=== PATIENT | female | born 1960 | race Caucasian/White ===

== ENCOUNTER 2016-08-26 10:03 | Observation (INO) ==
[2016-08-26 10:37] LABS: Basophils # 0.1 K/mcL (0.0-0.2); Basophils % 1.6 %; Eosinophils # 0.2 K/mcL (0.0-0.6); Eosinophils % 2.8 %; Hemoglobin 15.4 g/dL (11.5-15.4); Immature Granulocytes % 0.5 % (0-4); Immature Platelets 8.7 % (1.1-6.1); Lymphocytes # 2.6 K/mcL (0.6-4.6); Lymphocytes % 41.4 %; Mean Corpuscular HGB Conc 33.5 g/dL (31.6-35.5); Mean Corpuscular Hemoglobin 29.8 pg (28.0-33.3); Mean Platelet Volume 10.9 fL (9.4-12.4); Monocytes # 0.4 K/mcL (0.0-1.3); Monocytes % 6.2 %; Platelet Count 168 K/mcL (140-400); Red Blood Count 5.17 M/mcL (3.82-4.97); Red Cell Distribution Width 12.3 % (11.5-14.5); Segmented Neutrophils % 47.5 %
[2016-08-26 10:44] LABS: INR 1.1; Prothrombin Time 11.8 Seconds (9.4-12.1)
[2016-08-26 10:47] LABS: Activated Partial Thrombo Time 30.9 Seconds (26.0-36.0)
[2016-08-26 10:50] LABS: BUN/Creatinine Ratio 13 (6-26); Blood Urea Nitrogen 10 mg/dL (7-20); Calcium 9.5 mg/dL (8.6-10.8); Carbon Dioxide 28 mEq/L (19-29); Chloride 106 mEq/L (98-109); Glucose 98 mg/dL (70-99); Osmolality,Calculated 295 (280-300); Potassium 3.6 mEq/L (3.5-4.5); Sodium 143 mEq/L (136-145); eGFR For African Americans > 60 (> 60); eGFR For Non-African Americans > 60 (> 60)
--- NOTE | 2016-08-26 12:06 | Emergency Department Note ---
Disposition Clinical Impression: Acute coronary syndrome, Unstable angina pectoris Disposition: Admitted As Inpatient Condition: Fair Chest Pain HPI - General Chief Complaint: ED Chest Pain Stated Complaint: Chest pain/dizzy/x 3 days Time Seen by Provider: 08/26/16 10:38 Source: patient Limitations: no limitations Vital Signs Reviewed: Yes Nursing Notes Reviewed: Yes - History of Present Illness HPI Narrative: She presents with chest pain and this is described as crushing and it is 15 minutes at a time and is intermittent and started one half days ago. Initially called the paramedics and drove down the hill from her house but the paramedics have not yet arrived and her she said decided that he did not want to go to the hospital and did not want her to go so they called paramedics back and canceled the call. She has had intermittent to 2 minute chest pain episodes since that time. Nonexertional. He does not specifically have dyspnea but said she feels it is difficult to breathe. No diaphoresis. No radiation, neck, arm, jaw or back. No pain or swelling of the lower extremities. Social history: Smoker. Family history: Positive for heart disease Severity scale (1-10): 6 - Related Data Previous Rx's Medication Instructions Recorded Cyclobenzaprine [Flexeril] 5 mg PO HS #3 tablet 01/31/15 TraMADol [Ultram] 50 mg PO Q4HR #10 tablet 01/31/15 LORazepam [Ativan] 0.5 mg PO TID PRN #8 tablet 03/01/15 Albuterol Sulfate [Albuterol 1 puff IH Q4HR PRN #1 inhaler 10/11/15 Inhaler] Fluticasone Propionate Nasal 50 mcg NS DAILY #1 bottle 11/04/15 [Flonase] Acetaminophen w/Cod 300-30 mg 1 each PO Q6HR #12 tablet 01/04/16 [Tylenol w/Codeine #3] Cyclobenzaprine [Flexeril] 10 mg PO TID #30 tablet 01/04/16 Meclizine [Antivert] 25 mg PO TID #30 tablet 02/25/16 Acetaminophen w/Cod 300-30 mg 1 - 2 each PO BID PRN #4 tablet 08/15/16 [Tylenol w/Codeine #3] Promethazine [Phenergan] 25 mg PO Q8HR #10 tablet 08/15/16 Allergies Allergy/AdvReac Type Severity Reaction Status Date / Time Penicillins [PCN] Allergy Rash Verified 02/24/16 20:49 Review of Systems: Constitutional: No fever Vision: No blurred vision ENT: No rhinorrhea Respiratory: No cough Allergic: No allergies : No blood in urine GI: No blood in stool Hematologic: + bruising Dermatologic: No skin rash Musculoskeletal: No pain in the extremities Neuro: No numbness of the extremities Chest Pain PMH - Past Medical History Medical history: Reports: migraine, other Psychiatric history: Reports: anxiety 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: no 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 SUPERVISOR history - Social History Smoking Status: Current every day smoker Alcohol use: Reports: none Drug use: Reports: none Physical Exam CONSTITUTIONAL: Well-appearing; well-nourished; A&O X 3, in no apparent distress HEAD: Normocephalic; atraumatic EYES: PERRL, no scleral icterus NOSE: The nose is normal in appearance without rhinorrhea NECK: No JVD or distended neck veins RESP: Normal chest excursion with respiration; breath sounds clear and equal bilaterally; no wheezes, rhonchi, or rales CARD: Regular rhythm, without murmurs, rub or gallop ABD: Non-distended; non-tender, soft, without rigidity, rebound or guarding,no pulsatile mass CHEST: No pain with palpation SKIN: Normal for age and race; warm and dry without diaphoresis ; no apparent lesions EXTREMITIES: Pulses are 2 plus and equal times 4 extremities, no peripheral edema or calf muscle pain - General Limitations: no limitations General appearance: alert, in no apparent distress Course Vital Signs Temperature 97.6 F 08/26/16 10:12 Pulse Rate 72 08/26/16 10:12 Respiratory Rate 17 08/26/16 10:12 Blood Pressure 115/81 08/26/16 10:12 O2 Sat by Pulse Oximetry 98 08/26/16 10:12 Temperature 97.6 F 08/26/16 10:12 Pulse Rate 53 08/26/16 11:56 Respiratory Rate 14 08/26/16 11:56 Blood Pressure 122/80 08/26/16 11:56 O2 Sat by Pulse Oximetry 100 08/26/16 11:56 Oxygen Delivery Oxygen Delivery Room Air Chest Pain - MDM Narrative Medical decision making narrative: I discussed the patient spoke with her and did review her EKG and it shows normal sinus rhythm with a rate of 60 and there is some nonspecific ST changes her initial labs are negative. The patient will be admitted for further cardiac evaluation. I did speak with Dr. Rodas who is the hospitalist and he does accept the patient for admission. Aspirin 325mg PO. SHe is here w her daughter [id number] - Medical Records Medical records reviewed: Yes I reviewed the patient's medical records. - Lab Data Lab results reviewed: Yes I reviewed the patient's lab results. Result diagrams: 08/26/16 10:29 08/26/16 10:29 Lab Results 08/26/16 08/26/16 08/26/16 Range/Units 10:29 10:29 10:29 WBC 6.3 (4.3-11.1) K/mcL RBC 5.17 H (3.82-4.97) M/mcL Hgb 15.4 (11.5-15.4) g/dL Hct 46.0 H (35.3-44.9) % MCV 89.0 (83.0-100.0) fL MCH 29.8 (28.0-33.3) pg MCHC 33.5 (31.6-35.5) g/dL RDW 12.3 (11.5-14.5) % Plt Count 168 (140-400) K/mcL MPV 10.9 (9.4-12.4) fL Immature Gran % 0.5 (0-4) % Seg Neutrophils % 47.5 % Lymphocytes % 41.4 % Monocytes % 6.2 % Eosinophils % 2.8 % Basophils % 1.6 % Neutrophils # 3.0 (1.6-8.9) K/mcL Lymphocytes # 2.6 (0.6-4.6) K/mcL Monocytes # 0.4 (0.0-1.3) K/mcL Eosinophils # 0.2 (0.0-0.6) K/mcL Basophils # 0.1 (0.0-0.2) K/mcL Immature Plt Fraction 8.7 H (1.1-6.1) % PT 11.8 (9.4-12.1) Seconds INR 1.1 APTT 30.9 (26.0-36.0) Seconds Sodium 143 (136-145) mEq/L Potassium 3.6 (3.5-4.5) mEq/L Chloride 106 (98-109) mEq/L Carbon Dioxide 28 (19-29) mEq/L BUN 10 (7-20) mg/dL Creatinine 0.79 (0.57-1.11) mg/dL Est GFR ( Amer) > 60 (> 60) Est GFR (Non-Af Amer) > 60 (> 60) BUN/Creatinine Ratio 13 (6-26) Glucose 98 (70-99) mg/dL Calculated Osmolality 295 (280-300) Calcium 9.5 (8.6-10.8) mg/dL Troponin I (0-0.03) ng/mL 08/26/16 Range/Units 10:29 WBC (4.3-11.1) K/mcL RBC (3.82-4.97) M/mcL Hgb (11.5-15.4) g/dL Hct (35.3-44.9) % MCV (83.0-100.0) fL MCH (28.0-33.3) pg MCHC (31.6-35.5) g/dL RDW (11.5-14.5) % Plt Count (140-400) K/mcL MPV (9.4-12.4) fL Immature Gran % (0-4) % Seg Neutrophils % % Lymphocytes % % Monocytes % % Eosinophils % % Basophils % % Neutrophils # (1.6-8.9) K/mcL Lymphocytes # (0.6-4.6) K/mcL Monocytes # (0.0-1.3) K/mcL Eosinophils # (0.0-0.6) K/mcL Basophils # (0.0-0.2) K/mcL Immature Plt Fraction (1.1-6.1) % PT (9.4-12.1) Seconds INR APTT (26.0-36.0) Seconds Sodium (136-145) mEq/L Potassium (3.5-4.5) mEq/L Chloride (98-109) mEq/L Carbon Dioxide (19-29) mEq/L BUN (7-20) mg/dL Creatinine (0.57-1.11) mg/dL Est GFR ( Amer) (> 60) Est GFR (Non-Af Amer) (> 60) BUN/Creatinine Ratio (6-26) Glucose (70-99) mg/dL Calculated Osmolality (280-300) Calcium (8.6-10.8) mg/dL Troponin I 0.00 (0-0.03) ng/mL - Radiology Data Radiology results reviewed: Yes I reviewed the patient's radiology results. Chest X-Ray 08/26/16 10:16 IMPRESSION: Question of minimal COPD. No acute cardiopulmonary disease. D/ / John Garcia MD / John Garcia MD Interpreting Provider: John Garcia MD - EKG Data EKG attestation: Yes I reviewed and interpreted this EKG.
[2016-08-26] MEDS ORDERED: Acetaminophen 325 MG TABLET PO PRN (13:36)
[2016-08-26] MEDS ORDERED: Naloxone 0.4 MG/ML INJ IVP PRN (13:36)
[2016-08-26] MEDS ORDERED: Ondansetron 4 MG/2 ML VIAL IVP PRN (13:36)
[2016-08-26] MEDS ORDERED: *HR* Morphine 2 MG/ML SYRINGE IVP PRN (13:36)
[2016-08-26 14:09] LABS: Magnesium 1.8 mg/dL (1.6-2.6)
[2016-08-26 14:22] LABS: Chol/HDL Ratio 5.3 (0-4.9); Cholesterol 176 mg/dL (< 200); HDL Cholesterol 33 mg/dL (40-59); LDL Cholesterol,Calculated 110 mg/dL (0-99); Triglycerides 164 mg/dL (< 150)
[2016-08-26] MEDS ORDERED: *HR* Acetaminophen w/Cod 300-30 mg 1 TAB TABLET PO ONE (14:32)
[2016-08-26 14:42] LABS: Thyroid Stimulating Hormone 1.439 mcIU/mL (0.350-4.840)
[2016-08-26 14:48] LABS: Hemoglobin A1C 4.9 %
--- NOTE | 2016-08-26 15:21 | Internal Med History&Physical ---
Date of Encounter: 08/26/16 Time of Encounter: 14:40 Assessment and Plan (1) Chest pain Current visit: Yes Status: Acute Acute chest pain - rule out ACS Continue aspirin and statin EKG - normal sinus rhythm and no acute ST-T changes Troponin - negative, will trend Chest x-ray - no acute process Cardiac telemetry Echocardiogram pending, nuclear stress test pending Qualifiers: Chest pain type: unspecified Qualified Code(s): R07.9 - Chest pain, unspecified (2) Anxiety Current visit: Yes Status: Chronic Continue clonazepam when necessary (3) Migraine headache Current visit: Yes Status: Chronic Acute on chronic Continue Tylenol when necessary Follows up at [facility] as outpatient Qualifiers: Migraine type: without aura Status migrainosus presence: without status migrainosus Intractability: not intractable Qualified Code(s): G43.009 - Migraine without aura, not intractable, without status migrainosus (4) Tobacco abuse Current visit: Yes Status: Chronic Nicotine patch, counseled about cessation (5) DVT prophylaxis Current visit: Yes Status: Acute Continue heparin subcutaneous Internal Medicine - H&P: HPI Chief complaint: chest pain Admitted From: Emergency Dept History of present illness: Ms. Aguilar is a 56 year old female past medical history of migraine headache and anxiety. She presents to the ED with complaints of chest pain.she states pain initially started about 2 days ago. she describes the pain as a crushing substernal pain, sometimes radiating to the back. She states pain is intermittent. Rates it 7 out of 10. Does not radiate to the left arm or neck. no aggravating or alleviating factors. no other associated symptoms. patient denies shortness of breath, denies palpitations. denies abdominal pain or vomiting or diarrhea. she does complain of migraine headache. On examination patient is awake and alert. not in any distress. Able to provide history. She is being admitted for chest pain to rule out ACS. We will repeat EKG in a.m., and troponin and continue aspirin and statin. Patient has been explained about her condition and plan of care. Understood and agreed. No unanswered questions. CODE STATUS full code. Past Med Surg Social Fam HX - Past Medical History Medical history: migraine, other Psychiatric history: anxiety - Past Surgical History Surgical History: breast surgery, - Social History Smoking Status: Current every day smoker Packs per day: 1 Smokeless Tobacco Status: No Alcohol use: none Drug use: none - Family History Mother Living Status: Age at : 76 Cause of : SBO Hx Family Cardiac Disorders: Yes Father Living Status: Age at : 82 Cause of : Heart Disease Hx Family Cardiac Disorders: Yes Internal Medicine - H&P: Meds Acetaminophen [Tylenol] 1,000 mg PO Q6HR PRN 08/26/16 [History] clonazePAM [Klonopin] 0.5 mg PO BID PRN 08/26/16 [History] Allergies Penicillins [PCN] Allergy (Verified 02/24/16 20:49) Rash All Systems PM: A 10-system review of systems was performed and is negative for pertinent findings except as documented above in the HPI. - Constitutional Constitutional: fatigue, weakness, no fever(s) - EENT Eyes: no blurry vision - Cardiovascular Cardiovascular ROS IM: chest pain, dyspnea (mild), no diaphoresis, no lightheadedness, no orthopnea, no syncope - Respiratory Respiratory: no cough, no hemoptysis, no dyspnea on exertion, no wheezing, no chest congestion - Gastrointestinal Gastrointestinal: no abdominal pain, no bloating, no diarrhea, no nausea, no vomiting - Genitourinary Genitourinary: no dysuria - Musculoskeletal Musculoskeletal ROS IM: back pain - Neurological Neurological ROS: no abnormal gait, no abnormal speech, no dizziness, no numbness, no tingling - Constitutional Vitals: Temp Pulse Resp BP Pulse Ox 97.7 F 49 16 118/70 100 08/26/16 13:46 08/26/16 13:46 08/26/16 13:46 08/26/16 13:46 08/26/16 13:46 General appearance: Present: cachectic, A&O X 3, no acute distress, answers questions appropriately - Head Head exam: Present: atraumatic - Eye Eye exam: Present: EOMI - ENT ENT exam: Present: mucous membranes dry - Respiratory Respiratory exam: Present: CTAB. Absent: rhonchi, wheezes, tachypnea - Cardiovascular Cardiovascular exam: Present: RRR, +S1, +S2 - GI/Abdominal GI/Abdominal exam: Present: soft, no peritoneal signs. Absent: distended, firm , guarding, rebound, tenderness - Extremities Exam Extremities exam: Present: radial pulses palpable and symetrical. Absent: cyanotic, pedal edema, tenderness - Neurological Exam Neurological exam: Present: alert, oriented X3, no focal deficits Internal Med - H&P Results - Labs CBC & Chem 7: 08/26/16 10:29 08/26/16 10:29
[2016-08-26] MEDS: Nicotine 21 MG PATCH.TD24 TD SCH (15:23)
[2016-08-26] MEDS: Aspirin 81 MG TAB.CHEW PO SCH (15:23)
--- NOTE | 2016-08-26 15:55 | Electrocardiograph Report ---
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
[2016-08-26] MEDS: *HR* Heparin 5,000 UNIT/ML VIAL SQ SCH (17:54)
[2016-08-26] MEDS: Famotidine 20 MG TABLET PO SCH (19:54)
[2016-08-26] MEDS: clonazePAM 0.5 MG TABLET PO PRN (22:02)
[2016-08-26 22:03] LABS: Bilirubin,Urine Negative (Negative); Blood,Urine Negative (Negative); Clarity,Urine Clear (Clear); Color,Urine Yellow (Yellow); Glucose,Urine (UA) Normal (Normal); Ketones,Urine Negative (Negative); Leukocyte Esterase,Urine Negative (Negative); Nitrite,Urine Negative (Negative); Protein,Urine Negative (Neg-Trace); Specific Gravity,Urine 1.009 (1.010-1.025); Urobilinogen,Urine Normal (Normal)
[2016-08-27 03:53] LABS: BUN/Creatinine Ratio 18 (6-26); Blood Urea Nitrogen 13 mg/dL (7-20); Carbon Dioxide 21 mEq/L (19-29); Chloride 109 mEq/L (98-109); Glucose 84 mg/dL (70-99); Osmolality,Calculated 291 (280-300); Potassium 3.8 mEq/L (3.5-4.5); Sodium 141 mEq/L (136-145); eGFR For African Americans > 60 (> 60); eGFR For Non-African Americans > 60 (> 60)
[2016-08-27] MEDS ORDERED: Regadenoson 0.4 MG/5 ML SYRINGE IVP ONE (05:59)
[2016-08-27] MEDS: *HR* Heparin 5,000 UNIT/ML VIAL SQ SCH ×2 (06:14→17:03)
[2016-08-27] MEDS: Aspirin 81 MG TAB.CHEW PO SCH (08:39)
[2016-08-27] MEDS: Famotidine 20 MG TABLET PO SCH ×2 (08:40→21:05)
[2016-08-27] MEDS: Nicotine 21 MG PATCH.TD24 TD SCH (08:40)
[2016-08-27] MEDS ORDERED: Ketorolac 60 MG/2 ML VIAL IM ONE (15:34)
--- NOTE | 2016-08-27 18:12 | Internal Med Progress Note ---
Date of Encounter: 08/27/16 Time of Encounter: 11:45 - Assessment and plan (1) Chest pain Current Visit: Yes Status: Acute Assessment and plan: Reports chest pain, onset 3 days ago described as crushing substernal pain with radiation through to the back. It is intermittent, 10/10. There is no radiation and no other associated symptoms. She denies shortness of breath or palpitations, nausea, vomiting, diaphoresis. Patient reports that initially pain began at 11:30 PM which awakened her from sleep. She said it lasted about 15 minutes she said the pain was so intense crushing that she could not move. With this episode she did report nausea and feeling clammy. She said that he could get squat together [place] She said she waited 30-45 minutes for the squad, it did not calm, she took 3 baby aspirin and went that. On August 25 she had the same episode again, was not as bad , rated 6/10 and lasted 5 minutes. On the day of admission she woke up from sleep at midnight with the same pain, this time last 30 minutes. Patient was to have stress test today, during stress test she became hypotensive and the test was stopped. Will complete test tomorrow. Echocardiogram was completed, showed normal systolic functio LVEF 60-65%, normal diastolic function, normal RV size and function, mild AR and no evidence of pulmonary hypertension. Chest x-ray was negative for acute process, possible COPD. Troponins were negative 3. EKG is normal sinus rhythm. TSH was within normal limits. 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 Says her is helpful with chores at home. Patient states that she has tried antidepressants in the past, however none longer than 1 week. Patient appears to be very anxious and states that she wants to go home and has multiple questions about side effects of antidepressants. We did have a lengthy discussion and she has agreed to try an SSRI for a month to test its effectiveness. I have started her on Escitalopram. Patient states that she does not want to talk to psychiatry. (3) Migraine headache Current Visit: Yes Status: Chronic Assessment and plan: Chronic. Patient sees neurology at [facility]. Migraine today, Tylenol was ineffective. Patient was given Toradol 60 mg IM. She says this has been effective for her in the past. Continue to monitor. Qualifiers: Migraine type: without aura Status migrainosus presence: without status migrainosus Intractability: not intractable Qualified Code(s): G43.009 - Migraine without aura, not intractable, without status migrainosus (4) Tobacco abuse Current Visit: Yes Status: Chronic Assessment and plan: Patient reports to me that she does not smoke. Patient has nicotine patch ordered. (5) DVT prophylaxis Current Visit: Yes Status: Acute Assessment and plan: Patient is ambulatory. Heparin subcutaneous daily. - Time Spent With Patient less than 15 minutes - Subjective Interval history: She was seen and assessed about 1145 this morning. Patient has very flat affect and appears to be somewhat depressed. She reports dizziness for 2 years which is becoming increasingly worse. She reports that this is constant that she sees neurology at [facility] for this. She says that she has bulging disc and C7 and has migraines which she also sees neurology at [facility] 4. She has been through vestibular rehabilitation twice seem to help some, but the dizziness never completely resolved. She says it happens daily at about 10 AM, regardless of where she is what she is doing. She has had syncopal episodes and has fallen due to the dizziness in the past. She reports near constant weakness and fatigue and 30 pound weight loss since April of this year. She denies any change in her diet or change in appetite. She says she has started drinking in sure, as well. She says that she is to follow up with GI at [facility] they can get an appointment until October or November. She says that she will thinks that she is not absorbing her food wants her to see a GI specialist. She has requested to see GI here, and is aware that he is out of town for the remainder of this month. She has had a CT chest and pelvis, as well as an MRI brain to investigate potential causes for weight loss. She is to see hematology here next week, Dr. Martinez. She denies alcohol, recreational drugs, or cigarette smoking. I have started her on Megace, and she is agreeable to start on an antidepressant. She says that she has taken antidepressants in the past and they make her feel funny, although she has never taken one longer than a week. We discussed the fact that most of them take at least 2 weeks to take effect and I encouraged her to take one for at least 1 month to assess its effectiveness. She was agreeable to this. She was to have a stress test done today, however during the stress test, she became hypotensive, and the test was stopped. She wanted to sign out AMA because she has horses at home that need to be cared for. She said her is not helpful, she says this to causes her stress. - Constitutional Vitals: Temp Pulse Resp BP Pulse Ox 98.6 F 58 16 100/62 97 08/27/16 16:06 08/27/16 16:06 08/27/16 16:06 08/27/16 16:06 08/27/16 16:06 General appearance: Present: cachectic, A&O X 3, pleasant, no acute distress, underweight, answers questions appropriately - Head Head exam: Present: normal inspection - Eye Eye exam: Present: normal appearance, conjuntiva pink - ENT ENT exam: Present: normal exam - Neck Neck exam general surgery: Present: normal inspection. Absent: lymphadenopathy , tenderness - Respiratory Respiratory exam: Present: decreased breath sounds, CTAB. Absent: rales, rhonchi, stridor, wheezes - Cardiovascular Cardiovascular exam: Present: RRR, +S1, +S2. Absent: diastolic murmur, systolic murmur - GI/Abdominal GI/Abdominal exam: Present: normal bowel sounds, soft. Absent: distended, hepatomegaly, tenderness - Extremities Exam Extremities exam: Present: normal capillary refill, warm, radial pulses palpable and symetrical. Absent: pedal edema, tenderness - Neurological Exam Neurological exam: Present: alert, oriented X3, no focal deficits. Absent: facial droop, speech deficit Internal Medicine: Result - Labs CBC & Chem 7: 08/26/16 10:29 08/27/16 02:22 Labs: BMP 08/27/16 02:22 Sodium 141 Potassium 3.8 Chloride 109 Carbon Dioxide 21 BUN 13 Creatinine 0.72 Glucose 84 Calcium 9.0 Cardiac Enzymes 08/26/16 08/27/16 Range/Units 22:13 02:22 Troponin I 0.00 0.00 (0-0.03) ng/mL Urine 08/26/16 Range/Units 21:55 Urine Color Yellow (Yellow) Urine Clarity Clear (Clear) Urine pH 6.0 (5.0-8.0) pH Units Ur Specific [place] 1.009 L (1.010-1.025) Urine Protein Negative (Neg-Trace) mg/dL Urine Glucose (UA) Normal (Normal) mg/dL - ABG Interpretation ABG results: PT/INR, D-dimer PT 11.8 Seconds (9.4-12.1) 08/26/16 10:29 Consult Discharge Plan - Plan Referrals: Gerald Fisher MD [Primary Care Provider] - 09/08/16 10:00 am
[2016-08-27] MEDS: clonazePAM 0.5 MG TABLET PO PRN (18:38)
[2016-08-28] MEDS: *HR* Heparin 5,000 UNIT/ML VIAL SQ SCH (04:25)
[2016-08-28] MEDS ORDERED: 0.9 % Sodium Chloride 500 ML IVC ONE (07:17)
[2016-08-28] MEDS ORDERED: Regadenoson 0.4 MG/5 ML SYRINGE IVP ONE (09:52)
[2016-08-28] MEDS: Nicotine 21 MG PATCH.TD24 TD SCH (11:31)
[2016-08-28] MEDS: Aspirin 81 MG TAB.CHEW PO SCH (11:31)
[2016-08-28] MEDS: Famotidine 20 MG TABLET PO SCH (11:31)
[2016-08-28 11:49] VITALS: BP 111/71
--- NOTE | 2016-08-28 13:09 | Nuclear Medicine Stress Report ---
Exercise Nuclear Stress 2 day Name: Damaris Aguilar Date of Study: 08/27/2016 Date: 1960 Ht: 64.0 in Medical Record#: [id number] Age: 56 Wt: 112.0 lb Gender: Female Order #: [id number] Location: [facility] Room: [facility] Supervising Provider: Ashley Marroquin CNP Reading Physician: Susana Wolf DO Ordering Physician: Karol Woodruff CNP Primary Care Physician: Gerald Fisher MD Stress Technologist: Luly Valles, ROSALIE,[facility] Telephone Supervisor: Yaya Suazo Indications: Chest Pain Impression: Perfusion imaging was negative for ischemia or infarct. Exercise ECG was non-diagnostic for ischemia due to baseline abnormalities. Blunted blood pressure response with good exercise capacity per documentation. Gated EF = 65%. History: Hypercholesteremia History of Smoking Stress Test Summary: Stress Test Type: Treadmill Protocol: Tony Baseline Information: Initial Heart Rate: 88 Blood Pressure: 96/62 Stress Information: Stress Time: 7 min 00 sec Test Terminated Due to (primary): Fatigue Maximum Blood Pressure: 126/40 Maximum Heart Rate: 149 Percent Maximum Heart Rate Achieved: 90 Double Product: [id number] METS Reached: 10.1 Symptoms: Leg discomfort Nuclear Summary: SPECT myocardial perfusion imaging using Tc99m Sestamibi given intravenously was performed at rest and following cardiac stress testing. The resting images were obtained following initial dose of 11.8 mCi. Following stress an additional dose of 33.7 mCi was given at peak exercise or 30 seconds post regadenoson infusion. Medication Given: Time Medication Dose Units Route Findings: Stress Note * Resting ECG demonstrated normal sinus rhythm with nonspecific ST abnormalities. * Exercise ECG is non diagnostic for ischemia due to non-specific ST and T wave changes. * No arrhythmias were noted during stress. * Patient had no chest pain during stress. * The exercise capacity was good. Hemodynamic responses * The patient demonstrated a blunted response blood pressure response. Study Quality * Study quality is good. Gated EF % * Gated EF = 65%. Left Ventricle * The left ventricle is not dilated. TID * No evidence of transient ischemic dilatation. Lung Uptake * There is no evidence of increase lung uptake. NORMALS * Normal wall motion. * Normal segmental perfusion in stress. * Normal Segmental Perfusion in rest. Updated by Susana Wolf on 08/28/2016 12:57:54 PM electronically signed on 08/28/2016 1:03:37 PM with status of Final
--- NOTE | 2016-08-28 14:11 | Discharge Summary ---
Date of Encounter: 08/28/16 Time of Encounter: 08:40 - Discharge Diagnosis (1) Chest pain Priority: Primary Status: Acute Comments: Patient denies chest pain. She has not had any episodes of chest pain since she got here. She denies pressure, nausea, diaphoresis, shortness of breath. Stress test was negative for ischemia or infarct, patient had a blunted blood pressure response with good exercise capacity with a gaited EF of 65%. She reached 90% of maximum heart rate and maximum heart rate was 149. Echocardiogram showed normal systolic function with LVEF of 6065%, normal diastolic function, normal RV size and function, mild AR and no evidence of pulmonary hypertension. Chest x-ray was negative for acute processes other than possible COPD. Troponins were negative 3. EKG is normal sinus rhythm, TSH was within normal limits. Qualifiers: Chest pain type: unspecified Qualified Code(s): R07.9 - Chest pain, unspecified (2) Anxiety Priority: Secondary Status: Chronic Comments: Patient with. I have started her on Escitalopram and encouraged her to continue with longer than a week. I told her it takes at least 2 weeks were to start eating. She says that she does not want to see psychiatry. Continue medication at home. (3) Migraine headache Priority: Secondary Status: Chronic Comments: Chronic. No headache at this time. Continue home medications. Qualifiers: Migraine type: without aura Status migrainosus presence: without status migrainosus Intractability: not intractable Qualified Code(s): G43.009 - Migraine without aura, not intractable, without status migrainosus (4) Tobacco abuse Priority: Secondary Status: Chronic Comments: Patient currently smokes one half pack per day. She says that she has access to free nicotine patches since she works at the [employer]. Says she has some at home and will use them on discharge. (5) DVT prophylaxis Priority: Secondary Status: Acute Comments: Heparin subcutaneous daily. Patient is ambulatory. - Discharge Medications Prescriptions: Aspirin 81 mg PO DAILY #30 tab.chew Escitalopram [Lexapro] 10 mg PO DAILY #30 tablet Megestrol Acetate [Megace] 40 mg PO DAILY #30 tablet Simvastatin [Zocor] 20 mg PO QPM #30 tablet Home Medications: Acetaminophen [Tylenol] 1,000 mg PO Q6HR PRN 08/26/16 [History] clonazePAM [Klonopin] 0.5 mg PO BID PRN 08/26/16 [History] Aspirin 81 mg PO DAILY #30 tab.chew 08/28/16 [Rx] Escitalopram [Lexapro] 10 mg PO DAILY #30 tablet 08/28/16 [Rx] Megestrol Acetate [Megace] 40 mg PO DAILY #30 tablet 08/28/16 [Rx] Nicotine Patch [Nicoderm] 21 mg TD DAILY patch.[id number] 08/28/16 [Rx] Simvastatin [Zocor] 20 mg PO QPM #30 tablet 08/28/16 [Rx] Allergies/Adverse Reactions: Allergies Penicillins [PCN] Allergy (Verified 02/24/16 20:49) Rash Procedures/tests Complete & Pending: Procedures Performed prior 72 hours Category Date Time Status NM david perf SPECT multi [NM] Routine Exams 08/26/16 13:42 Taken ECG 12 lead ECG [ECG] AM 0600 Y 08/27/16 06:00 Ordered EV echocardiogram Routine Y 08/26/16 13:42 Completed SP exercise nuclear stress Routine Y 08/28/16 07:45 Completed Date of admission: 08/26/16 12:29 Primary care physician: Gerald Fisher MD Consults: 08/26/16 13:40 Consult to [employer]ice [CONS] Routine Reason for SW Consult: Discharge planning Discharging clinician: Karol Woodruff Anticipated date of discharge: 08/28/16 - Patient Status Disposition: Home, Self-Care Condition: Good Functional capacity at discharge: independent ambulation Overall status at discharge: patient is back to baseline - Discharge Instructions Follow Up With: Gerald Fisher MD [Primary Care Provider] - 09/08/16 10:00 am Additional Instructions: Follow-up with your primary care physician in the next 7-10 days for follow-up visit. Follow up with neurology and GI as scheduled. Start your new medications tomorrow, except for the Zocor, which you will start tonight. Take as directed. Continue your normal home medications. You may return to work on Tuesday. Use your nicotine patches to stop smoking. Return to the ER as needed for any other problems or concerns or for any new concerning symptoms that you may have. - Diet and Activity Activity: increase activity as tolerated Diet: advance to your usual diet Hospital course: Ms. Aguilar is a 56 year old female with past medical history of migraine headaches, anxiety, depression, and tobacco use. Patient also has recent significant weight loss of 30 or more pounds. Patient presents to the emergency department on August 26 with complaint of three-day history of intermittent, crushing substernal chest pain with radiation through to her back , no radiation to jaw neck or arm. She rated it 10/10 she denies shortness of breath, palpitations, nausea, vomiting, diaphoresis. Initial episode he can 11: 30 PM 2 days prior to arrival, and awakened her from sleep and lasted about 15 minutes. She said the pain was so intense crushing that she could not move. She states she tried to get a squad to bring her to the emergency department, but it was going to take them 2 hours to get to her. She states that she took 3 baby aspirin and went to bed. On August 25 she had the same episode again, was less severe, rated 6/10 and lasted 5 minutes. On the day of admission, August 26, she waking from sleep at midnight with the same pain, this time it lasted for 30 minutes. Patient was to have a stress test, however, on day 1 she became hypotensive and test had to be made into 2 day test. Today patient was to go for stress this morning, she was hypotensive and bradycardic. She was given a 500 mL bolus of fluids and was encouraged to get up and ambulate. Her pressure and pulse were normal at the time of stress test. Stress test was negative for ischemia or infarct, blunted blood pressure response with good exercise capacity , gated EF 65%. Maximum heart rate during stress test was 149 and she achieved 90% of maximum heart rate. Patient's 24 hour baseline pulse was in the high 50s. I spoke with cardiology on the phone regarding the situation, patient was to see cardiology in February for bradycardia but did not show for the appointment. Due to her maximum heart rate 149 and achieving 90% of maximum heart rate, there is not much concern for the bradycardia. Hypotension is most likely due to her recent weight loss. She became normotensive with a fluid bolus and activity. Blood pressure during stress test was 126/40. Initial heart rate was 88 at the beginning of the stress test. Patient follows with [facility] for her migraines and chronic dizziness. She has been in vestibular rehabilitation twice, this did seem to help, but it did not last. Patient has a significant unintentional recent weight loss of about 32 pounds over the last 6 months. She states that she has been seen by her primary care, she will also have an appointment with [facility] GI specialist in November. She said that physicians at [facility] think that she is not absorbing her food. She denies abdominal pain, nausea, vomiting, diarrhea. I have started her on Megace to stimulate her appetite. I do feel that some of her chest pain, weight loss is due to some anxiety. She is a very flat affect and seems apprehensive about every test and medication that we discussed. She had multiple questions and stated multiple times that she did not want to from taking medications. She states that she has been on multiple antidepressants in the past but never takes them for longer than a week due to random symptoms that are most likely unrelated to medication like tingling lips and shaking hands. I have encouraged her to take Lexapro and have given her for at least a month before stopping it. Patient states she smokes approximately one half pack per day. We discussed the benefits of smoking cessation today. She says that she has access to free nicotine patches from work where she works at the [employer]. She said she will start using those. Labs were within normal limits. Patient has been bradycardic, however she has good exercise capacity and does have the ability to reach maximum heart rate, this is also not new and has been going on since at least February. Patient has been hypotensive. Blood pressure responds well to fluid bolus and activity. This is most likely due to weight loss and rest, both pressure was taken, and is not concerning. Patient is stable and ready for discharge. Time spent discussing smoking cessation with patient: 3 to 10 minutes - Time Spent with Patient Total time spent providing and/or coordinating discharge services: Less than 30 minutes - Constitutional Vitals: Temp Pulse Resp BP Pulse Ox 99.8 F H 53 16 111/71 98 08/28/16 11:48 08/28/16 11:48 08/28/16 11:48 08/28/16 11:48 08/28/16 11:48 General appearance: Present: cachectic, A&O X 3, pleasant, no acute distress, underweight, answers questions appropriately - Head Head exam: Present: normal inspection - Eye Eye exam: Present: normal appearance, conjuntiva pink - ENT ENT exam: Present: mucous membranes moist, normal exam, normal external ear exam - Neck Neck exam general surgery: Present: normal inspection. Absent: lymphadenopathy , tenderness - Respiratory Respiratory exam: Present: CTAB. Absent: chest wall tenderness, decreased breath sounds, rales, respiratory distress, rhonchi, stridor, wheezes - Cardiovascular Cardiovascular exam: Present: RRR, +S1, +S2. Absent: clicks, diastolic murmur, distant heart sounds, gallop, systolic murmur - GI/Abdominal GI/Abdominal exam: Present: normal bowel sounds, soft. Absent: distended, hernia, hepatomegaly, tenderness - Extremities Exam Extremities exam: Present: normal capillary refill, warm, radial pulses palpable and symetrical. Absent: pedal edema, tenderness - Neurological Exam Neurological exam: Present: alert, oriented X3, no focal deficits. Absent: facial droop, speech deficit
== END 2016-08-28 15:10 | disposition home or self-care (01) ==
LOC: EMEROO 10:03 → 3BNU 10:03
PROVIDERS: ADMIT Family Medicine; ATTEND Registered Nurse